=== PATIENT | female | born 1975 | race Hispanic/Latino ===

== ENCOUNTER 2016-12-22 21:00 | Emergency (ER) | payer OTHER ==
[2016-12-22 21:57] VITALS: BP 139/99
[2016-12-22 22:36] LABS: Bilirubin,Urine NEG (Negative); Blood,Urine MOD (Negative); Ketones,Urine NEG (Negative); Leukocyte Esterase,Urine MOD (Negative); Mucus,Urine FEW /HPF; Nitrite,Urine NEG (Negative); Protein,Urine <15 mg/dL mg/dL (Negative); Urobilinogen,Urine < 2.0 mg/dL (<2.0)
--- NOTE | 2016-12-22 22:49 | Emergency Department Report ---
HPI - General Chief Complaint: Urogenital-Female Time Seen by Provider: 12/22/16 22:10 - HPI HPI: 41-year-old female with a history presents the ED complaining of vaginal pain 2 -3 days. She states she feels there is like there is something in her vagina. 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 She denies fevers/chills/nausea/vomiting/abdominal complaints / dysuria/vaginal discharge/vaginal bleeding/ ED Past Medical Hx - Past Medical History Previous Medical History?: Yes Hx of Cancer: Yes (skin) - Social History Smoking Status: Never Smoker Substance Use Type: None - Medications Home Medications: Home Medications Medication Instructions Recorded Confirmed Last Taken Type Acetaminophen/Codeine [Tylenol 1 tab PO Q6H PRN #10 tab 12/22/16 Unknown Rx /Codeine # 3 tab] Fluconazole [Diflucan TAB] 150 mg PO ONCE #2 tablet 12/22/16 Unknown Rx Ibuprofen [Motrin] 800 mg PO Q8HR PRN #30 tablet 12/22/16 Unknown Rx Sulfamethoxazole/Trimethoprim 1 each PO BID #20 tablet 12/22/16 Unknown Rx [Bactrim DS TAB] ED Review of Systems ROS: Stated complaint: ABDOMINAL PAIN Other details as noted in HPI Constitutional: denies: chills, fever Eyes: denies: eye pain, eye discharge, vision change ENT: denies: ear pain, throat pain Respiratory: denies: cough, shortness of breath, wheezing Cardiovascular: denies: chest pain, palpitations Endocrine: no symptoms reported Gastrointestinal: denies: abdominal pain, nausea, vomiting, diarrhea Genitourinary: as per HPI. denies: urgency, dysuria, frequency, hematuria, discharge, abnormal menses, dyspareunia Musculoskeletal: denies: back pain, joint swelling, arthralgia Skin: denies: rash, lesions Neurological: denies: headache, weakness, numbness, paresthesias Psychiatric: denies: anxiety, depression Hematological/Lymphatic: denies: easy bleeding, easy bruising Physical Exam - Physical Exam Vital Signs: Vital Signs 12/22/16 21:50 Temperature 98.1 F Pulse Rate 72 Respiratory 20 Rate Blood Pressure 139/99 O2 Sat by Pulse 100 Oximetry Physical Exam: GENERAL: Alert and oriented x3, no apparent distress, Normal Gait, atraumatic. HEAD: Head is normocephalic and a-traumatic. LUNGS: Symetrical with respiration, No wheezing, no rales or crackles, CTAB. HEART: S1, S2 present, regular rate and rhythm without murmur, no rubs, no gallops. Non tender to palpation ABDOMEN: No organomegaly was noted,Positive bowel sounds, soft, and non- distended. . Nontender to palpation on all Quadrants, NO CVA tenderness. GENITOURINARY: External genitalia without erythema, exudate or discharge. Vaginal vault spelled copious greenish discharge at the insertion of the speculum. Cervix is of normal color without lesion. Cervical os is closed. No bleeding noted. Uterus is noted to be of normal size and nontender. No cervical motion tenderness. There is 2-3 cm tender's palpated at 12:00 in vaginal wall. The adnexa are without masses or tenderness. SKIN: Warm and dry, No lesions, No ulceration or induration present. ED Course Vital Signs 12/22/16 21:50 Temperature 98.1 F Pulse Rate 72 Respiratory 20 Rate Blood Pressure 139/99 O2 Sat by Pulse 100 Oximetry ED Medical Decision Making - Medical Decision Making 41-year-old female presents with vaginal abscess ED course: Discussed with abscess to drain resolve on its own. Discussed with the patient to take medication as prescribed. This caused vaginal abscess resolve after antibiotic therapy. Upon vaginal exam with speculum inserted, copious discharge drained. Cleaned with a 4 x 4 gauze and ring forceps Disposition follow-up with product demonstrator when she gets to her home town. Vital signs are stable stress. SHe is in no acute distress. Critical care attestation.: If time is entered above; I have spent that time in minutes in the direct care of this critically ill patient, excluding procedure time. ED Disposition Clinical Impression: Discharging abscess of vagina Disposition: - TO HOME OR SELFCARE Is pt being admited?: No Does the pt Need Aspirin: No Condition: Stable Instructions: Abscess (ED) Prescriptions: Acetaminophen/Codeine [Tylenol /Codeine # 3 tab] 1 tab PO Q6H PRN #10 tab PRN Reason: Pain Fluconazole [Diflucan TAB] 150 mg PO ONCE #2 tablet Ibuprofen [Motrin] 800 mg PO Q8HR PRN #30 tablet PRN Reason: Pain Sulfamethoxazole/Trimethoprim [Bactrim DS TAB] 1 each PO BID #20 tablet Referrals: CORINNE HARRISON MD [Referring] - 3-5 Days [facility]Outside] - 3-5 Days Forms: Work/School Release Form(ED) Time of Disposition: 22:49
[2016-12-22] MEDS ORDERED: NORCO 5/325 PO ONE (22:52)
[2016-12-22] MEDS ORDERED: MOTRIN PO ONE (22:53)
== END 2016-12-22 23:19 | disposition home or self-care (01) ==
LOC: ED 21:00
DX: N76.0 Acute vaginitis (principal); C44.90 Unspecified malignant neoplasm of skin, unspecified
CPT/HCPCS: 81001; 87116; 99284